=== PATIENT | female | born 1955 | race Caucasian/White ===

== ENCOUNTER 2016-07-19 12:38 | Inpatient (IN) | payer BC ==
[2016-07-19] VITALS (416 sets, daily range): BP systolic 110–129; BP diastolic 51–91; PULSE 84–111; TEMP 97.2–99.1; O2SAT 72–100
[~2016-07-19] VITALS: Ht 162.6 cm; Wt 60.7 kg
[2016-07-19] MEDS ORDERED: PRILOSEC 20MG20 MG PO (13:02)
[2016-07-19] MEDS ORDERED: B-12 100 MCG (13:03)
[2016-07-19 13:18] LABS: BASO % 0.5 % (0.0-2.0); EOS # 0.1 (0.0-0.7); EOS % 2.1 % (0-4.0); GRAN # 2.7 (1.4-6.5); GRAN % 71.6 % (42.2-75.2); LYMPH # 0.6 (1.2-3.4); LYMPH % 16.3 % (20.0-51.0); MEAN CELL VOLUME 94 fl (80.0-100.0); MEAN CORPUSCULAR HGB CONC 30 g/dl (33.0-37.0); MEAN PLATELET VOLUME 9.7 fl (7.4-10.4); MONO # 0.4 (0.1-0.6); MONO % 9.2 % (1.7-9.3); PLATELET COUNT 415 K/mm3 (130-400); RED BLOOD COUNT 2.03 M/mm3 (4.10-5.30); REDCELL DISTRIBUTION WIDTH-CV 14.6 % (11.5-14.5); WHITE BLOOD COUNT 3.8 K/mm3 (4.8-10.8)
[2016-07-19 13:26] LABS: HEMATOCRIT 19.1 % (37.0-47.0); HEMOGLOBIN 5.8 g/dl (12.5-16.0); MEAN CORPUSCULAR HEMOGLOBIN 29 pg (27.0-31.0)
[2016-07-19 13:34] LABS: ADJUSTED CALCIUM 8.9 mg/dL (8.4-10.2); ALBUMIN 3.6 gm/dL (3.5-5.0); BILIRUBIN,TOTAL 0.5 mg/dL (0.0-1.0); CALCIUM 8.6 mg/dL (8.4-10.2); CREATININE, serum 0.47 mg/dL (0.52-1.25); POTASSIUM 3.6 mmol/L (3.4-5.0); TOTAL PROTEIN 5.6 gm/dL (6.4-8.2)
[2016-07-19 16:26] LABS: RETIC % 9.1 % (0.5-3.52)
[2016-07-19] MEDS ORDERED: FORTEO250 MCG/ML SQ (16:42)
[2016-07-19 17:08] LABS: THYROID STIMULATING HORMONE 1.9 uIU/mL (0.465-4.680)
[2016-07-19] MEDS ORDERED: B-121000 MCG PO (17:52)
[2016-07-19] MEDS ORDERED: VITAMIN D31000 IU PO (17:53)
[2016-07-19] MEDS ORDERED: NATURAL IRON65 MG PO (17:54)
[2016-07-19 23:24] LABS: BASO % 0.6 % (0.0-2.0); EOS # 0.1 (0.0-0.7); EOS % 2.1 % (0-4.0); GRAN # 3.6 (1.4-6.5); GRAN % 67.7 % (42.2-75.2); LYMPH % 19.6 % (20.0-51.0); MEAN CELL VOLUME 91 fl (80.0-100.0); MEAN CORPUSCULAR HGB CONC 32 g/dl (33.0-37.0); MEAN PLATELET VOLUME 9.9 fl (7.4-10.4); MONO # 0.5 (0.1-0.6); MONO % 9.8 % (1.7-9.3); PLATELET COUNT 341 K/mm3 (130-400); RED BLOOD COUNT 2.94 M/mm3 (4.10-5.30); REDCELL DISTRIBUTION WIDTH-CV 14.9 % (11.5-14.5); WHITE BLOOD COUNT 5.3 K/mm3 (4.8-10.8)
[2016-07-19 23:26] LABS: HEMATOCRIT 26.6 % (37.0-47.0); HEMOGLOBIN 8.4 g/dl (12.5-16.0); MEAN CORPUSCULAR HEMOGLOBIN 29 pg (27.0-31.0)
[2016-07-20] VITALS (506 sets, daily range): BP systolic 107–130; BP diastolic 57–97; PULSE 71–98; TEMP 97.4–99.2; O2SAT 61–100
[2016-07-20 00:04] LABS: TOTAL IRON BINDING CAPACITY 343 ug/dL (265-497)
[2016-07-20 00:30] LABS: FERRITIN 9 ng/mL (11-264)
[2016-07-20 06:23] LABS: BASO % 0.7 % (0.0-2.0); EOS # 0.1 (0.0-0.7); EOS % 3.1 % (0-4.0); GRAN % 65.4 % (42.2-75.2); LYMPH # 0.9 (1.2-3.4); LYMPH % 19.7 % (20.0-51.0); MEAN CELL VOLUME 90 fl (80.0-100.0); MEAN CORPUSCULAR HGB CONC 31 g/dl (33.0-37.0); MEAN PLATELET VOLUME 9.9 fl (7.4-10.4); MONO # 0.5 (0.1-0.6); MONO % 10.9 % (1.7-9.3); PLATELET COUNT 352 K/mm3 (130-400); RED BLOOD COUNT 3.08 M/mm3 (4.10-5.30); REDCELL DISTRIBUTION WIDTH-CV 14.9 % (11.5-14.5); WHITE BLOOD COUNT 4.5 K/mm3 (4.8-10.8)
[2016-07-20 06:25] LABS: HEMATOCRIT 27.7 % (37.0-47.0); HEMOGLOBIN 8.7 g/dl (12.5-16.0); MEAN CORPUSCULAR HEMOGLOBIN 28 pg (27.0-31.0)
[2016-07-20 06:30] LABS: CALCIUM 8.2 mg/dL (8.4-10.2); CREATININE, serum 0.47 mg/dL (0.52-1.25); POTASSIUM 3.2 mmol/L (3.4-5.0)
[2016-07-21 01:01] VITALS: BP 122/59; PULSE 93; TEMP 97.6
[2016-07-21 05:04] VITALS: BP 109/50; PULSE 88; TEMP 97.9
[2016-07-21 08:33] VITALS: BP 134/61; PULSE 93; TEMP 98.3
[2016-07-21 17:03] VITALS: BP 108/54; PULSE 92; TEMP 97.9
[2016-07-22 02:21] LABS: ANA SCREEN with REFLEX Negative (Negative)
[2016-07-28 13:20] LABS: HEMOGLOBIN A2 2.5 % (0.0-3.5); HEMOGLOBIN F <2.0 % (0.0-2.0)
== END 2016-07-21 17:44 | disposition home or self-care (01) | DRG 394 ==
LOC: COL.ER 12:38 → ICU 14:09 → MEDICAL 14:09 → IMCU 20:20 → MEDICAL 07-20 13:20
PROVIDERS: Emergency Medicine; Family Medicine; Internal Medicine Gastroenterology
PROC: 0DJD8ZZ Inspection of Lower Intestinal Tract, Via Natural or Artificial Opening Endoscopic (ICD-10-PCS; principal; 2016-07-21 11:30)
PROC: 0DJ08ZZ Inspection of Upper Intestinal Tract, Via Natural or Artificial Opening Endoscopic (ICD-10-PCS; 2016-07-21 11:30)
DX: K64.1 Second degree hemorrhoids (principal); D62 Acute posthemorrhagic anemia; D50.9 Iron deficiency anemia, unspecified; E87.6 Hypokalemia; K21.0 Gastro-esophageal reflux disease with esophagitis; K44.9 Diaphragmatic hernia without obstruction or gangrene
CPT/HCPCS: 99223-AI; 99232-AI; 99238; C9113; J2250; J2310; J3010; J7030; P9016

== ENCOUNTER 2016-07-31 09:29 | Outpatient (RCR) | payer BC ==
[~2016-07-31] VITALS: Ht 162.6 cm; Wt 63.6 kg
[2016-07-31] VITALS (10 sets, daily range): BP systolic 103–148; BP diastolic 44–82; PULSE 68–98; TEMP 97.2–98.7
[~2016-07-31 09:29] MED LIST: B-12 100 MCG; B-121000 MCG PO; FORTEO250 MCG/ML SQ; NATURAL IRON65 MG PO; PRILOSEC 20MG20 MG PO; VITAMIN D31000 IU PO
== END 2016-10-29 | disposition home or self-care (01) ==
LOC: EUO
DX: D50.9 Iron deficiency anemia, unspecified (principal); M81.0 Age-related osteoporosis without current pathological fracture; E55.9 Vitamin D deficiency, unspecified; K21.9 Gastro-esophageal reflux disease without esophagitis; Z80.1 Family history of malignant neoplasm of trachea, bronchus and lung; Z80.0 Family history of malignant neoplasm of digestive organs; Z83.2 Family history of diseases of the blood and blood-forming organs and certain disorders involving the immune mechanism
CPT/HCPCS: J7050; P9016

== ENCOUNTER → 2016-11-20 | Outpatient (CLI) | payer BC | LOC: MC.RAD 09:28 | DX: Z12.31 Encounter for screening mammogram for malignant neoplasm of breast (principal) ==

== ENCOUNTER 2017-11-15 17:59 | Observation (INO) | payer BC ==
[~2017-11-15] VITALS: Ht 162.6 cm; Wt 61.0 kg
[~2017-11-15 17:59] MED LIST changes: +FOLIC ACID 40400 MCG PO; +NATURAL IRON65 MG
[2017-11-15 18:17] LABS: BASO % 0.5 % (0.0-2.0); EOS # 0.2 (0.0-0.7); EOS % 2.9 % (0-4.0); GRAN # 4.3 (1.4-6.5); GRAN % 65.4 % (42.2-75.2); HEMATOCRIT 40.6 % (37.0-47.0); HEMOGLOBIN 13.1 g/dl (12.5-16.0); LYMPH # 1.4 (1.2-3.4); LYMPH % 21.3 % (20.0-51.0); MEAN CELL VOLUME 99 fl (80.0-100.0); MEAN CORPUSCULAR HEMOGLOBIN 32 pg (27.0-31.0); MEAN CORPUSCULAR HGB CONC 32 g/dl (33.0-37.0); MONO # 0.6 (0.1-0.6); MONO % 9.6 % (1.7-9.3); PLATELET COUNT 334 K/mm3 (130-400); RED BLOOD COUNT 4.12 M/mm3 (4.10-5.30); REDCELL DISTRIBUTION WIDTH-CV 12.5 % (11.5-14.5)
[2017-11-15] MEDS ORDERED: TAMBOCOR50 MG PO (18:30)
[2017-11-15 18:31] LABS: BILIRUBIN,TOTAL 0.2 mg/dL (0.0-1.0); CREATININE, serum 0.57 mg/dL (0.52-1.25); POTASSIUM 3.7 mmol/L (3.4-5.0); TOTAL PROTEIN 6.6 gm/dL (6.4-8.2)
[2017-11-15 18:34] LABS: INR 0.9 (0.8-3.0); PROTHROMBIN TIME 10.7 SECONDS (9.7-12.8)
[2017-11-15 18:37] LABS: PARTIAL THROMBOPLASTIN TIME 30.1 SECONDS (26.0-37.0)
[2017-11-15 23:08] VITALS: BP 158/61; PULSE 84; TEMP 97.8
[2017-11-16 04:00] VITALS: BP 119/49; PULSE 88; TEMP 97.4
[2017-11-16 06:31] LABS: BASO % 0.6 % (0.0-2.0); EOS # 0.1 (0.0-0.7); EOS % 2.5 % (0-4.0); GRAN # 3.4 (1.4-6.5); GRAN % 64.6 % (42.2-75.2); LYMPH # 1.2 (1.2-3.4); LYMPH % 22.1 % (20.0-51.0); MEAN CELL VOLUME 100 fl (80.0-100.0); MEAN CORPUSCULAR HEMOGLOBIN 33 pg (27.0-31.0); MEAN CORPUSCULAR HGB CONC 33 g/dl (33.0-37.0); MEAN PLATELET VOLUME 10.5 fl (7.4-10.4); MONO # 0.5 (0.1-0.6); PLATELET COUNT 321 K/mm3 (130-400); RED BLOOD COUNT 3.69 M/mm3 (4.10-5.30); REDCELL DISTRIBUTION WIDTH-CV 12.6 % (11.5-14.5)
[2017-11-16 06:32] LABS: HEMATOCRIT 36.9 % (37.0-47.0)
[2017-11-16 06:40] LABS: CALCIUM 8.2 mg/dL (8.4-10.2); CREATININE, serum 0.53 mg/dL (0.52-1.25); POTASSIUM 3.9 mmol/L (3.4-5.0)
[2017-11-16 07:14] LABS: COLLECTION METHOD CLEAN CATCH
[2017-11-16 07:21] LABS: MUCOUS Present /lpf; PH 6 (5-8); SQUAMOUS EPITHELIAL None Seen /hpf; URINE APPEARANCE Clear; URINE BACTERIA None Seen /hpf; URINE BILIRUBIN Negative (NEGATIVE); URINE BLOOD 1+ (NEGATIVE); URINE COLOR Yellow; URINE GLUCOSE 1+ (NEGATIVE); URINE KETONE Negative (NEGATIVE); URINE LEUKOCYTE ESTERASE Negative (NEGATIVE); URINE NITRATE Negative (NEGATIVE); URINE PROTEIN(semi-quant) Negative (NEGATIVE); URINE UROBILINOGEN Negative (NEGATIVE)
[2017-11-16 07:27] VITALS: BP 150/66; PULSE 83; TEMP 98.6
[2017-11-16] MEDS ORDERED: ANTIVERT 12.512.5 MG PO (09:04)
== END 2017-11-16 10:13 | disposition home or self-care (01) ==
LOC: COL.ER 17:59 → MEDICAL 19:32
PROVIDERS: Family Medicine; Nurse Practitioner
DX: R42 Dizziness and giddiness (principal); I49.9 Cardiac arrhythmia, unspecified; D64.9 Anemia, unspecified; Z77.22 Contact with and (suspected) exposure to environmental tobacco smoke (acute) (chronic)
CPT/HCPCS: G0378; J7030

== ENCOUNTER → 2017-12-10 | Outpatient (CLI) | payer BC ==
[~2017-12-10] MED LIST changes: +ANTIVERT 12.512.5 MG PO; +TAMBOCOR50 MG PO
== END ==
LOC: MC.RAD 10:00
DX: Z12.31 Encounter for screening mammogram for malignant neoplasm of breast (principal)

== ENCOUNTER 2018-06-30 10:59 | Outpatient (RCR) | payer BC ==
[~2018-06-30] VITALS: Ht 162.6 cm; Wt 63.6 kg
[2018-06-30] VITALS (10 sets, daily range): BP systolic 91–114; BP diastolic 37–69; PULSE 67–91; TEMP 98.1–99.2
== END 2018-06-30 16:21 | disposition home or self-care (01) ==
LOC: EUO 10:59
DX: D50.0 Iron deficiency anemia secondary to blood loss (chronic) (principal)
CPT/HCPCS: J7050; P9016

== ENCOUNTER 2018-11-05 14:35 | Outpatient (CLI) | payer BC ==
[~2018-11-05] VITALS: Ht 162.6 cm; Wt 65.4 kg
[2018-11-05 15:20] LABS: CREATININE, serum 0.48 (0.52-1.25)
[2018-11-05 16:04] VITALS: BP 115/50; PULSE 68; TEMP 98.7
== END 2018-11-05 16:25 | disposition home or self-care (01) ==
LOC: EUO 14:35
PROVIDERS: Family Medicine
DX: Z01.89 Encounter for other specified special examinations (principal); M81.0 Age-related osteoporosis without current pathological fracture
CPT/HCPCS: J3489

== ENCOUNTER → 2018-12-20 | Outpatient (CLI) | payer BC | LOC: MC.RAD 07:51 | DX: Z12.31 Encounter for screening mammogram for malignant neoplasm of breast (principal) ==

== ENCOUNTER → 2019-12-22 | Outpatient (CLI) | payer MEDICARE, BC | LOC: MC.RAD 09:41 | DX: Z12.31 Encounter for screening mammogram for malignant neoplasm of breast (principal); N63.10 Unspecified lump in the right breast, unspecified quadrant; N63.20 Unspecified lump in the left breast, unspecified quadrant ==

== ENCOUNTER → 2019-12-29 | Outpatient (CLI) | payer MEDICARE, BC | LOC: MC.RAD 08:20 | DX: N60.02 Solitary cyst of left breast (principal) ==

== ENCOUNTER 2020-06-08 07:37 | Outpatient (CLI) | payer MEDICARE, BC ==
[2020-06-08 08:41] VITALS: BP 142/82; PULSE 88; TEMP 97.6
[2020-06-08] MEDS ORDERED: ALTACE 5MG5 MG PO (09:20)
--- NOTE | 2020-06-08 09:51 | NUR ---
Pt remained in dept 30 mins following initial prolia injeciton. No complaints or issues following medicaiton. She is assisted out by wheelchair to sister's car.
== END 2020-06-08 09:50 | disposition home or self-care (01) ==
LOC: COL.RAD
DX: N20.1 Calculus of ureter (principal); K44.9 Diaphragmatic hernia without obstruction or gangrene; M81.0 Age-related osteoporosis without current pathological fracture; Z01.812 Encounter for preprocedural laboratory examination; Z79.899 Other long term (current) drug therapy
CPT/HCPCS: J0897; Q9967

== ENCOUNTER 2020-12-12 14:18 | Outpatient (CLI) | payer MEDICARE, BC ==
[~2020-12-12] VITALS: Ht 162.6 cm; Wt 54.0 kg
[~2020-12-12 14:18] MED LIST changes: +ALTACE 5MG5 MG PO
[2020-12-12 14:57] VITALS: BP 103/48; PULSE 84; TEMP 98.8; TEMP 99.3
== END 2020-12-12 18:14 | disposition home or self-care (01) ==
LOC: EUO 14:18
DX: M81.0 Age-related osteoporosis without current pathological fracture (principal)
CPT/HCPCS: J0897

== ENCOUNTER → 2020-12-24 | Outpatient (CLI) | payer MEDICARE, BC | LOC: MC.RAD 10:23 | DX: Z12.31 Encounter for screening mammogram for malignant neoplasm of breast (principal) ==

== ENCOUNTER 2021-06-17 14:31 | Outpatient (CLI) | payer MEDICARE, BC ==
[~2021-06-17] VITALS: Ht 162.6 cm; Wt 65.5 kg
[2021-06-17 15:02] VITALS: BP 120/52; PULSE 91; TEMP 98.8
== END 2021-06-17 15:59 | disposition home or self-care (01) ==
LOC: EUO 14:31
DX: M81.0 Age-related osteoporosis without current pathological fracture (principal)
CPT/HCPCS: J0897

== ENCOUNTER 2021-10-05 17:47 | Inpatient (IN) | payer MEDICARE, BC ==
[2021-10-05] VITALS (46 sets, daily range): BP systolic 85–117; BP diastolic 38–63; PULSE 112–121; TEMP 98.2–99.3; O2SAT 92–100
[~2021-10-05] VITALS: Ht 162.5 cm; Wt 70.3 kg
[2021-10-05 18:09] LABS: BASO % 0.1 % (0.0-2.0); GRAN # 14.3 K/mm3 (1.4-6.5); GRAN % 87.4 % (42.2-75.2); LYMPH # 0.8 K/mm3 (1.2-3.4); LYMPH % 4.6 % (20.0-51.0); MEAN CELL VOLUME 65 fl (80.0-100.0); MEAN CORPUSCULAR HGB CONC 24 g/dl (33.0-37.0); MEAN PLATELET VOLUME 10.6 fl (7.4-10.4); MONO # 1.1 K/mm3 (0.1-0.6); MONO % 6.9 % (1.7-9.3); PLATELET COUNT 750 K/mm3 (130-400); RED BLOOD COUNT 1.48 M/mm3 (4.10-5.30); REDCELL DISTRIBUTION WIDTH-CV 24.2 % (11.5-14.5)
[2021-10-05 18:20] LABS: HEMATOCRIT 9.6 % (37.0-47.0); HEMOGLOBIN 2.3 g/dl (12.5-16.0); MEAN CORPUSCULAR HEMOGLOBIN 16 pg (27-31)
[2021-10-05 18:24] LABS: INR 1.7 (0.8-3.0); PROTHROMBIN TIME 19.1 SECONDS (9.7-12.8)
[2021-10-05 18:30] LABS: ALBUMIN 3.2 gm/dL (3.4-4.8); BILIRUBIN,TOTAL 0.9 mg/dL (0.2-1.2); CALCIUM 9.1 mg/dL (8.4-10.2); CREATININE, serum 1.43 mg/dL (0.57-1.11); TOTAL PROTEIN 5.5 gm/dL (6.2-8.1)
[2021-10-05 18:30] LABS: MEAN CELL VOLUME 65 fl (80.0-100.0); MEAN CORPUSCULAR HGB CONC 24 g/dl (33.0-37.0); MEAN PLATELET VOLUME 10.4 fl (7.4-10.4); PLATELET COUNT 664 K/mm3 (130-400); RED BLOOD COUNT 1.32 M/mm3 (4.10-5.30); REDCELL DISTRIBUTION WIDTH-CV 24.1 % (11.5-14.5)
[2021-10-05 18:40] LABS: TROPONIN-I 0.096 ng/mL (0.00-0.033)
[2021-10-05 18:51] LABS: MEAN CORPUSCULAR HEMOGLOBIN 16 pg (27-31)
[2021-10-05 19:11] LABS: HEMATOCRIT 8.6 % (37.0-47.0); HEMOGLOBIN 2.1 g/dl (12.5-16.0)
[2021-10-05 19:19] LABS: COLLECTION METHOD IN
[2021-10-05 19:30] LABS: MUCOUS Present (NOT PRESENT); PH 5 (5-8); SQUAMOUS EPITHELIAL 0-2 /hpf (0-10); URINE APPEARANCE Hazy (CLEAR/HAZY); URINE BACTERIA None Seen /hpf (NONE SEEN); URINE BILIRUBIN Negative (NEGATIVE); URINE BLOOD Negative (NEGATIVE); URINE COLOR Yellow (YELLOW); URINE GLUCOSE Negative (NEGATIVE); URINE KETONE Negative (NEGATIVE); URINE LEUKOCYTE ESTERASE Negative (NEGATIVE); URINE NITRATE Negative (NEGATIVE); URINE PROTEIN(semi-quant) Negative (NEGATIVE); URINE UROBILINOGEN >=4.0 (NEGATIVE)
--- NOTE | 2021-10-05 23:42 | NUR ---
ATTEMPTED TO DO ADMISSION INTAKE/SUICIDE SCREENING. PT PRESENTS W AMS AND LETHERGY SO UNABLE TO ANSWER QUESTIONS. THE ONLY RESPONSE PT ANSWERED WAS WHEN ASKED HER NAME. WILL ATTEMPT AGAIN LATER IF PT BECOMES MORE ALERT/AWAKE
[2021-10-06] VITALS (855 sets, daily range): BP systolic 96–138; BP diastolic 37–81; PULSE 83–117; TEMP 98.4–99.8; O2SAT 61–100
[2021-10-06] LABS: ARTERIAL BLD GAS O2 SATURATION 98.5 % (92-100); ARTERIAL BLD GAS TCO2 CT 19.7; ARTERIAL BLOOD GAS BASE EXCESS -4.7 (-2-2); ARTERIAL BLOOD GAS HCO3 18.8 meq/L (22-26); ARTERIAL BLOOD GAS PCO2 27.5 mmHg (35-45); ARTERIAL BLOOD GAS pH 7.45 (7.35-7.45)
[2021-10-06 00:02] LABS: ARTERIAL BLOOD GAS PO2 137.9 mmHg (80-100)
[2021-10-06 00:41] LABS: TRICYCLIC ANTIDEPRESS URINE NEGATIVE
[2021-10-06 03:32] LABS: HEMATOCRIT 26.2 % (37.0-47.0); HEMOGLOBIN 8.3 g/dl (12.5-16.0)
[2021-10-06 03:41] LABS: CALCIUM 8.3 mg/dL (8.4-10.2); CREATININE, serum 0.84 mg/dL (0.57-1.11); POTASSIUM 3.8 mmol/L (3.5-4.5)
[2021-10-06 05:33] LABS: MEAN CORPUSCULAR HGB CONC 32 g/dl (33.0-37.0); MEAN PLATELET VOLUME 10.3 fl (7.4-10.4); RED BLOOD COUNT 3.07 M/mm3 (4.10-5.30); REDCELL DISTRIBUTION WIDTH-CV 21.2 % (11.5-14.5)
[2021-10-06 05:50] LABS: HEMATOCRIT 23.7 % (37.0-47.0); HEMOGLOBIN 7.6 g/dl (12.5-16.0); MEAN CELL VOLUME 77 fl (80.0-100.0); MEAN CORPUSCULAR HEMOGLOBIN 25 pg (27-31); PLATELET COUNT 447 K/mm3 (130-400)
[2021-10-06 06:31] LABS: BAND 2 % (0-10); LYMPHOCYTE 3 % (20.0-51.0); NEUTROPHILS 95 % (42.0-75.2); NUCLEATED RED BLOOD CELL 2 (0-6); PLATELET ESTIMATE INCREASED (NORMAL)
[2021-10-06 06:32] LABS: ANISOCYTOSIS 1+; HYPOCHROMIA 2+; POLYCHROMASIA 1+
--- NOTE | 2021-10-06 07:00 | NUR ---
BEDSIDE REPORT RECEIVED FROM JIMMIE GUILLEN. PT ADMITTED OVERNIGHT FOR ANEMIA, GI BLEED, AND AMS. PT PARTIALLY ORIENTED THIS AM. KNOWS WHERE SHE IS AND WHO SHE IS, BUT DOES NOT KNOW WHY SHE IS IN THE HOSPITAL OR HOW SHE GOT HERE. NS INFUSING AT 125. 20G PIV TO LEFT AC. 18 PIV TO RIGHT HAND. FC TO DEPENDENT DRAINAGE. WEARS 5L OXYMASK WITH SPO2 AT 100%. NO OBVIOUS SIGNS OF DISCOMFORT. LIES SUPINE WITH HOB ELEVATED.
[2021-10-06 08:42] LABS: HEMATOCRIT 25.9 % (37.0-47.0); HEMOGLOBIN 8.4 g/dl (12.5-16.0)
--- NOTE | 2021-10-06 09:33 | NUR ---
Cloud Developer attempted to meet with patient for intake assessment/discharge planning: Patient appears to be resting in bed, eyes closed. Documentation indicates patient is oriented only to self and brought to ER by family after visiting [place], 3 days after onset of abnormal behaviors. Cloud Developer attempted to contact patient sister/Next-of-Kin Damaris Rosales at [phone], and left generalized VM requesting a call back. No HIPPA information disclosed at this time. EMR indicates patient primary care physician is Dr. Greg Haider and preferred pharmacy is [facility]. Patient has healthcare coverage. No Advanced Directives/DPOA-HC noted in patient EMR. Cloud Developer awaiting contact from patient sister/Next-of-Kin for care planning discussion. Social Work to continue to follow. *Discharge plan: awaiting family contact and medical recommendations*
[2021-10-06 12:34] LABS: HEMATOCRIT 23.9 % (37.0-47.0); HEMOGLOBIN 7.8 g/dl (12.5-16.0)
--- NOTE | 2021-10-06 16:30 | NUR ---
Ssis Ssrs Developer received telephone contact from patient sister/Next-of-Kin Damaris Rosales ([phone]). Sister provides the following information: Patient lives alone in an apartment in the [facility] on the ground floor. She has been, to this point, independent in her ADLs and IADLS, though her preference is to eat out. Sister states she had been "insistent" that patient try utilizing a walker since she has unbalanced upper body, due to history of spinal curvature and surgery at age 11. Patient finally consented to use the walker prior to the trip to [place] this past week for a family reunion, and has used it since. Per sister, upon arrival to [place], patient began to be "mute" and did not eat, refused to respond to questions. They knew something was wrong and left as soon as possible, considering a stop in [place] for medical care but wanted to get her to the hospital closer to home. They dropped her off at the ER before they drove home. Sister informs patient has healthcare coverage, but not sure if she has an Advanced Directive and/or DPOA-HC "she hasn't wanted to talk to us about that stuff," however sister notes recently patient has expressed interest in touring [facility] [place] where sister and her spouse are currently prepared to move into. Sister encouraged patient to view numerous placements, as she is aware of many from friend experiences. She states belief that patient is receptive to recommendations for skilled care and/or in-home healthcare as medically recommended. She states patient has lived in [place] the past 3 years after having lived for the majority of her life in [place]; she has no spouse or children and worked for many years at the [employer]. She decided to move to be closer to her sibling when their parents . Sister is available for social work and/or medical contact and is given the telephone number for the ICU at her request. Sister reports no other questions/concerns at this time. *Discharge plan pending patient recovery/process and medical recommendations*
[2021-10-06 16:48] LABS: HEMATOCRIT 24.3 % (37.0-47.0); HEMOGLOBIN 7.7 g/dl (12.5-16.0)
--- NOTE | 2021-10-06 20:17 | NUR ---
Patient resting quietly in bed watching TV. Patient is alert and partially oriented. She is aware of self, current location, and current president. All vitals within normal limits. She tolerates ice water well. [place] box provided upon request.
[2021-10-06 21:26] LABS: HEMATOCRIT 24.5 % (37.0-47.0); HEMOGLOBIN 7.9 g/dl (12.5-16.0)
[2021-10-07] VITALS (332 sets, daily range): BP systolic 105–127; BP diastolic 42–68; PULSE 96–106; TEMP 97.8–98.4; O2SAT 56–100
[2021-10-07 05:23] LABS: MEAN CELL VOLUME 77 fl (80.0-100.0); MEAN CORPUSCULAR HGB CONC 31 g/dl (33.0-37.0); MEAN PLATELET VOLUME 10.4 fl (7.4-10.4); RED BLOOD COUNT 2.91 M/mm3 (4.10-5.30); REDCELL DISTRIBUTION WIDTH-CV 21.7 % (11.5-14.5)
[2021-10-07 05:32] LABS: CALCIUM 7.4 mg/dL (8.4-10.2); CREATININE, serum 0.63 mg/dL (0.57-1.11); POTASSIUM 3.4 mmol/L (3.5-4.5)
[2021-10-07 05:42] LABS: HEMATOCRIT 22.4 % (37.0-47.0); MEAN CORPUSCULAR HEMOGLOBIN 24 pg (27-31); PLATELET COUNT 281 K/mm3 (130-400)
[2021-10-07 05:48] LABS: TROPONIN-I 0.104 ng/mL (0.00-0.033)
[2021-10-07 05:56] LABS: LYMPHOCYTE 2 % (20.0-51.0); NEUTROPHILS 93 % (42.0-75.2); NUCLEATED RED BLOOD CELL 4 (0-6)
[2021-10-07 05:57] LABS: ANISOCYTOSIS 1+; HYPOCHROMIA 2+; PLATELET ESTIMATE NORMAL (NORMAL)
--- NOTE | 2021-10-07 08:15 | NUR ---
Resting in bed; Alert and parially oriented. Denies any pain or shortness of breath. Appears comfortable in bed. Patient is able to follow basic commands and answer basic yes or no questions appropriatly. However she was unable to tell this nurse that she was in the hospital but knows she is in [place]. Bed alarm set and call light left within reach.
[2021-10-07 12:13] LABS: HEMATOCRIT 23.9 % (37.0-47.0); HEMOGLOBIN 7.5 g/dl (12.5-16.0)
--- NOTE | 2021-10-07 16:25 | NUR ---
Assisted up to medical floor via wheelchair. Alert and oriented per usual and in no distress upon transfer. Met receiving RN at bedside. Call light left within reach.
[2021-10-07 18:29] LABS: HEMATOCRIT 24.1 % (37.0-47.0); HEMOGLOBIN 7.5 g/dl (12.5-16.0)
[2021-10-08] VITALS (13 sets, daily range): BP systolic 104–129; BP diastolic 41–67; PULSE 57–95; TEMP 97.6–99
--- NOTE | 2021-10-08 01:39 | NUR ---
PATIENT IN BED, VERY DROWSY BUT ALERT. OCHOA TO DD WITH CLEAR YELLOW URINE OUT. REMAINS NPO FOR POSSIBLE SCOPE IN AM. HS MEDS PER EMAR. DENIES PAIN.
[2021-10-08 06:30] LABS: CALCIUM 7.5 mg/dL (8.4-10.2); CREATININE, serum 0.61 mg/dL (0.57-1.11); POTASSIUM 3.9 mmol/L (3.5-4.5)
[2021-10-08 06:39] LABS: BASO % 0.2 % (0.0-2.0); EOS # 0.1 K/mm3 (0.0-0.7); EOS % 0.9 % (0.0-4.0); GRAN # 7.9 K/mm3 (1.4-6.5); GRAN % 80.1 % (42.2-75.2); LYMPH # 0.7 K/mm3 (1.2-3.4); LYMPH % 6.9 % (20.0-51.0); MEAN CELL VOLUME 79 fl (80.0-100.0); MEAN CORPUSCULAR HGB CONC 31 g/dl (33.0-37.0); MEAN PLATELET VOLUME 10.7 fl (7.4-10.4); MONO # 1.1 K/mm3 (0.1-0.6); PLATELET COUNT 191 K/mm3 (130-400); REDCELL DISTRIBUTION WIDTH-CV 23.7 % (11.5-14.5)
[2021-10-08 07:15] LABS: HEMATOCRIT 21.4 % (37.0-47.0); HEMOGLOBIN 6.6 g/dl (12.5-16.0); MEAN CORPUSCULAR HEMOGLOBIN 24 pg (27-31)
--- NOTE | 2021-10-08 09:49 | NUR ---
PATIENT ASSESSMENT DONE ORDER. PATIENT IS ALERT X 3 TODAY BUT TIRED(PER PATIENT)LUNG SOUND CLEAR IN ALL LOBES. BOWEL SOUND HYPERACTIVE IN ALL QUADS. PATIENT AT THIS TIME NPO FOR A POSSIBLE SCOPE TODAY. MEDICATION WAS GIVEN WITH SMALL AMOUNT OF WATER. LOWER EXTREMITIES WITH EDEMA NOTED. HEART RATE FAST BUT STILL IN NORMAL RANGE. OCHOA CATHETER IN TACT BUT FLOWING DARK YELLOW/SAJI COLOR WITH SEDIMENT NOTED.PATIENT LAB ([facility]) WAS AT 2.8 WHEN ADMITTED BUT NOW ITS 7.5.DR BRENNAN IS AWARE.IV SITE ON LEFT AC WAS NOT FLOWING CORRECTLY THIS MORNING BUT WITH REPOSTION SITE AND CHANGING TAPES, GOT TO FLOW CORRECTLY AND MEDICATION WAS GIVEN WITH NO ISSUE. CALL LIGHT IN REACH. INSTRUCTED TO CALL IF THERE IS ANY CONCERN OR QUESTION
--- NOTE | 2021-10-08 10:40 | NUR ---
VASCULAR NURSE NOTIFIED BEDSIDE NURSE ABOUT LLE DVT, SEE REPORT. HOSPITALIST NOTIFED, SEE ORDERS FOR IVC FILTER. NOTIFIED SHORT PIECE HANDLER, AWAITING RETURN CALL ABOUT PLACEMENT. PATIENT STILL NPO.
--- NOTE | 2021-10-08 15:15 | NUR ---
PATIENT GOING DOWN TO GASOLINE ENGINE ASSEMBLER FOR IVC FILTER PLACEMENT TODAY. CONSENT ON CHART. PATIENT HAS BEEN NPO.
--- NOTE | 2021-10-08 16:54 | NUR ---
LAB CALL AND THAT BLOOD TRANFUSION WAS READY.UPON ASSESSMENT IV ON LEFT AC WAS LEAKING,D/C COVER WITH GAUZE AND COBAN. RN RESTARTED 20G IV INTO RIGHT HAND. STARTED BLOOD TRANFUSION PER ORDER. VSS. PATIENT TOLERATED WELL SO FAR.
[2021-10-08 22:03] LABS: HEMATOCRIT 26.9 % (37.0-47.0); HEMOGLOBIN 8.5 g/dl (12.5-16.0)
--- NOTE | 2021-10-09 02:30 | NUR ---
PATIENT IN BED. ALERT BUT DROWSY. HS MEDS PER EMAR. BLOOD INFUSION COMPLETED SHORTLY AFTER SHIFT CHANGE. 2 HR POST H&H WAS 8.5. IVF INFUSING NOW. OCHOA TO DD WITH CLEAR YELLOW URINE. R GROIN SITE CDI WITH GAUZE AND TEGADERM. DENIES PAIN. DENIES ADDITIONAL NEEDS.
[2021-10-09 03:27] VITALS: BP 124/54; PULSE 68; TEMP 97.6
[2021-10-09 07:55] VITALS: BP 131/63; PULSE 93; TEMP 98.2
--- NOTE | 2021-10-09 08:00 | NUR ---
PT A&O SITTING IN BED EATING BREAKFAST AND TOLERATING CLEAR LIQUIDS. MEDS HAVE BEEN GIVEN AND ASSESSMENT IS COMPLETED. OCHOA IN PLACE WITH CLEAR URINE. PAIN IS DENIED. BOWEL PREP WILL BEGIN LATER THIS EVENING. NO OTHER NEEDS AT THIS TIME. CALL LIGHT WITHIN REACH.
[2021-10-09 08:42] LABS: BASO % 0.1 % (0.0-2.0); EOS # 0.2 K/mm3 (0.0-0.7); EOS % 2.1 % (0.0-4.0); GRAN # 6.6 K/mm3 (1.4-6.5); GRAN % 78.7 % (42.2-75.2); LYMPH # 0.4 K/mm3 (1.2-3.4); LYMPH % 4.6 % (20.0-51.0); MEAN CELL VOLUME 82 fl (80.0-100.0); MEAN CORPUSCULAR HGB CONC 31 g/dl (33.0-37.0); MEAN PLATELET VOLUME 11.2 fl (7.4-10.4); MONO # 1.1 K/mm3 (0.1-0.6); MONO % 13.4 % (1.7-9.3); PLATELET COUNT 156 K/mm3 (130-400); REDCELL DISTRIBUTION WIDTH-CV 22.6 % (11.5-14.5)
[2021-10-09 08:44] LABS: HEMATOCRIT 28.8 % (37.0-47.0); INR 1.3 (0.8-3.0); MEAN CORPUSCULAR HEMOGLOBIN 26 pg (27-31); PROTHROMBIN TIME 15.1 SECONDS (9.7-12.8)
[2021-10-09 08:53] LABS: ALBUMIN 2.9 gm/dL (3.4-4.8); BILIRUBIN,TOTAL 1.9 mg/dL (0.2-1.2); CALCIUM 7.5 mg/dL (8.4-10.2); CREATININE, serum 0.53 mg/dL (0.57-1.11); POTASSIUM 3.9 mmol/L (3.5-4.5); TOTAL PROTEIN 4.9 gm/dL (6.2-8.1)
--- NOTE | 2021-10-09 11:25 | NUR ---
Admissions Clinician met with patient to review discharge plan. Patient states she plans to return home with support from her sister, Damaris. SW addressed with patient that she is 2 assist at this time. Patient states she feels she can manage with help from Damaris. SW followed up again with patient with her sister, Damaris at bedside. Damaris advised she plans to take patient home to her house for at least a few days as patient regains her strength. Patient is open to Home Health services at time of discharge.
[2021-10-09 11:43] LABS: BILIRUBIN,DIRECT 0.9 mg/dL (0.0-0.5)
[2021-10-09 12:39] VITALS: BP 127/63; PULSE 81; TEMP 97.6
[2021-10-09 16:50] VITALS: BP 134/65; PULSE 84; TEMP 98.3
[2021-10-09 20:04] VITALS: BP 118/54; PULSE 88; TEMP 100.6
--- NOTE | 2021-10-09 20:21 | NUR ---
TEMP 100.6, NOTIFIED PAT DELACRUZ. AWAITING NEW ORDERS.
[2021-10-09 23:37] VITALS: BP 102/46; PULSE 81; TEMP 99.5
[2021-10-10] VITALS (10 sets, daily range): BP systolic 104–132; BP diastolic 46–68; PULSE 81–100; TEMP 98–99.1
--- NOTE | 2021-10-10 02:27 | NUR ---
PATIENT IN BED AT SHIFT CHANGE. HS MEDS PER EMAR. DENIES PAIN. OCHOA TO DD WITH CLEAR YELLOW URINE. R GROIN IVC SITE IS CDI WITH GAUZE AND TEGADERM. BOWEL PREP IS ALMOST COMPLETE AND PATIENT HAS HAD FIRST LOOSE BM. STOOLS ARE STILL BROWN AND THIS POINT.
--- NOTE | 2021-10-10 07:52 | NUR ---
CONTACTED LILLIE DELACRUZ FOR LAB ORDERS.
[2021-10-10 08:44] LABS: BASO % 0.2 % (0.0-2.0); EOS # 0.2 K/mm3 (0.0-0.7); GRAN # 9.1 K/mm3 (1.4-6.5); GRAN % 80.8 % (42.2-75.2); LYMPH # 0.4 K/mm3 (1.2-3.4); LYMPH % 3.4 % (20.0-51.0); MEAN CELL VOLUME 85 fl (80.0-100.0); MEAN CORPUSCULAR HGB CONC 30 g/dl (33.0-37.0); MEAN PLATELET VOLUME 10.6 fl (7.4-10.4); MONO # 1.5 K/mm3 (0.1-0.6); MONO % 12.9 % (1.7-9.3); PLATELET COUNT 142 K/mm3 (130-400); RED BLOOD COUNT 3.68 M/mm3 (4.10-5.30); REDCELL DISTRIBUTION WIDTH-CV 23.7 % (11.5-14.5)
[2021-10-10 08:48] LABS: HEMATOCRIT 31.3 % (37.0-47.0); HEMOGLOBIN 9.3 g/dl (12.5-16.0); MEAN CORPUSCULAR HEMOGLOBIN 25 pg (27-31)
[2021-10-10 08:50] LABS: CALCIUM 7.8 mg/dL (8.4-10.2); CREATININE, serum 0.55 mg/dL (0.57-1.11)
--- NOTE | 2021-10-10 11:49 | NUR ---
ASSESSMENT DONE ORDER. PATIENT CONTINUE TO BE OFF AND ON SLEEPING. ALERTX 2 WITH PERIOD OF CONFUSION. NO SEDATED MEDICATION GIVEN. PATIENT CONTINUE TO BE NPO FOR ENDOCOPY PROCEDURE TODAY. OCHOA CATHETER INTACT WITH YELLOW URINE. NO SEDEMENT NOTED. PATIENT TOLERATED PO MEDICATION TODAY. IV SITE ON RIGHT HAND WITH NO ISSUE NOTED. LEFT LEG CONTINUE TO BE SWOLLEN +2 PITTING NOTED. NO PAIN AT THIS TIME PER PATIENT. CALL LIGHT IN REACH. INSTRUCTED PATIENT TO CALL IF THERE IS ANY CONCERN OR QUESTION. SIDE NOTE. CLEAN EYES DUE TO DRY CRUST NOTED. PATIENT WAS ABLE TO OPEN RIGHT EYE AFTER CLEANING AREA.
--- NOTE | 2021-10-10 14:21 | NUR ---
TAP WATER ENEMA COMPLETE NO SOLIDS RETURNED. ALL LIQUID. PT TO PROCEEDURE AT THIS TIME. NEW IV START BY PEACE SAMUEL TO LEFT WRIST.
--- NOTE | 2021-10-10 14:34 | NUR ---
PT TO SURGERY PER BED AT THIS TIME. DR. ALEMAN IN TO SEE PT.
--- NOTE | 2021-10-10 15:59 | NUR ---
PT TO ROOM 327 PER BED WITH REPORT FROM SHELBI SAMUEL ENDO. PT HAD COLONSCOPY/EGD. VSS ASSESSMENTS COMPLETE. SEE REPORT FOR RESULTS. PT TOLERATING WELL.
--- NOTE | 2021-10-10 16:47 | NUR ---
AGREE WITH ASSESSMENTS CHARTED.
--- NOTE | 2021-10-10 18:30 | NUR ---
UPON BEDSIDE SHIFT REPORT WITH JIMMIE BRYSON. THE PATIENT'S IV THAT WAS PLACED BY AIVS HAS BEEN PULLED OUT, CATHETER IS HANGING OUT AND IS KINKED. THE PATIENT IS NOT COMPLAINING OF PAIN. HOWEVER, THE PATIENT IS STILL ON GRAVITY TUBING, SO RN UNAWARE OF OCCLUSION. WILL ATTEMPT X1 AND THEN CONTACT PROVIDER GIVEN THE DIFFICULTY SHE HAS BEEN HAVING WITH IVS. NO OTHER CONCERNS AT THIS TIME.
--- NOTE | 2021-10-11 02:02 | NUR ---
THE PATIENT'S IV HAS BEEN VERY TOUCHY. DURING THIS HOUR ROUNDING, THE IV HAS COME OUT. THERE IS BLOOD ON THE PATIENT'S PILLOW, AND GOWN, UPON FURTHER ASSESSMENT, THE IV CATHETER IS FULLY OUT. THIS IS THE IV THAT WAS PLACED BY [facility] TODAY. CALLED JAYME STEVENS WHO STATES THAT WE CAN DISCONTINUE THE FLUIDS AND THE PATIENT CAN GO WITHOUT THE IV AT THIS TIME.
[2021-10-11 04:07] VITALS: BP 110/46; BP 152/65; PULSE 65; PULSE 85; TEMP 98.1
[2021-10-11 06:34] LABS: BASO % 0.3 % (0.0-2.0); EOS # 0.3 K/mm3 (0.0-0.7); EOS % 2.9 % (0.0-4.0); GRAN # 9.2 K/mm3 (1.4-6.5); GRAN % 80.1 % (42.2-75.2); LYMPH # 0.5 K/mm3 (1.2-3.4); LYMPH % 4.5 % (20.0-51.0); MEAN CELL VOLUME 87 fl (80.0-100.0); MEAN CORPUSCULAR HGB CONC 30 g/dl (33.0-37.0); MEAN PLATELET VOLUME 11.1 fl (7.4-10.4); MONO # 1.3 K/mm3 (0.1-0.6); MONO % 11.7 % (1.7-9.3); PLATELET COUNT 138 K/mm3 (130-400); RED BLOOD COUNT 3.23 M/mm3 (4.10-5.30); REDCELL DISTRIBUTION WIDTH-CV 23.7 % (11.5-14.5)
[2021-10-11 06:37] LABS: HEMOGLOBIN 8.4 g/dl (12.5-16.0); MEAN CORPUSCULAR HEMOGLOBIN 26 pg (27-31)
[2021-10-11 06:50] LABS: CALCIUM 7.6 mg/dL (8.4-10.2); CREATININE, serum 0.52 mg/dL (0.57-1.11); POTASSIUM 3.8 mmol/L (3.5-4.5)
[2021-10-11 07:59] VITALS: BP 118/54; PULSE 89; TEMP 98.8
--- NOTE | 2021-10-11 08:00 | NUR ---
PT A&OX3 DROWSY BUT AWOKEN ON AROUSEL WHILE RESTING IN BED. ASSESSMENT COMPLETED AND AM MEDS GIVEN. PT DENIES PAIN. BOWEL SOUNDS ARE HYPERACTIVE IN ALL QUADRANTS. PALE IN COLOR BUT HAS IMPROVED. HGB STABLE AT 8.4. LLE STILL SLIGHTLY SWOLLEN. IVC FILTER IN PLACE FOR KNOWN DVT. NO ANTICOAGULANTS GIVEN DUE TO GI BLEED. VS ARE STABLE AND ON TELE. OCHOA IS OUTPUTTING URINE. PT BEING EVALUATED FOR DC PLANNING.
--- NOTE | 2021-10-11 11:45 | NUR ---
THERAPY REPORTED TO NURSING THAT PATIENT WOULD NOT PARTICIPATE DURING THERAPY AND WOULD JUST SLEEP. PATIENT WOULDN'T ANSWER THERAPIST WHEN SHE WAS TALKING TO HER. THERAPY WAS UNABLE TO WORK WITH PATIENT AT THIS TIME AND REPORTED THIS TO THE NURSE. NURSING ENTERED ROOM AND PATIENT OPENED EYES AND TALKED TO NURSE. PATIENT IS TIRED BUT THIS SEEMS BEHAVIORAL AND INTENTIONAL.
[2021-10-11 12:45] VITALS: BP 101/31; PULSE 87; TEMP 98.7
[2021-10-11 16:16] VITALS: BP 102/44; PULSE 86; TEMP 99
--- NOTE | 2021-10-11 16:44 | NUR ---
Informatica Architect received a call from Hospitalist on 10/10/21 advising that patient's sister would not be agreeable to have rehab referrals sent. ISMAEL faxed referrals to [facility] and [facility]. [facility] Screen was also placed. ISMAEL met with patient and patient's sister to discuss discharge planning. Patient still felt like she could go home with her sister, but after discussion with SW and sister, is agreeable to rehab. [facility] would [facility] the first preference. ISMAEL also discussed DPOA-HC with patient who verbalized understanding and willingness to complete form while here in hospital. Patient would like to designate her sister, Damaris and niece, Carola. ISMAEL and ISMAEL Rowell provided witness signatures. ISMAEL faxed clinical updates. [facility] advised they can accept, however cannot take until Thursday. [facility] declined referral. [facility] are reviewing updates at this time.
[2021-10-11 18:59] LABS: HEMATOCRIT 32.1 % (37.0-47.0); HEMOGLOBIN 9.5 g/dl (12.5-16.0)
[2021-10-11 19:34] VITALS: BP 112/44; PULSE 90; TEMP 98.6
--- NOTE | 2021-10-11 20:12 | NUR ---
ASSESSMENT COMPLETE. PT LYING IN BED. A&O. NO COMPLAINTS OF PAIN. OCHOA SECURED AND DEPENDENT TO DRAINAGE. CALL LIGHT IN REACH. NO FURHTER NEEDS AT THIS TIME.
[2021-10-11 23:22] VITALS: BP 114/45; PULSE 85; TEMP 98.4
[2021-10-12 04:07] VITALS: BP 113/50; PULSE 84; TEMP 98.2
[2021-10-12 06:18] LABS: BASO % 0.2 % (0.0-2.0); EOS # 0.3 K/mm3 (0.0-0.7); EOS % 2.8 % (0.0-4.0); GRAN % 80.7 % (42.2-75.2); LYMPH # 0.6 K/mm3 (1.2-3.4); LYMPH % 4.7 % (20.0-51.0); MEAN CELL VOLUME 87 fl (80.0-100.0); MEAN CORPUSCULAR HGB CONC 30 g/dl (33.0-37.0); MEAN PLATELET VOLUME 10.7 fl (7.4-10.4); MONO # 1.3 K/mm3 (0.1-0.6); MONO % 10.9 % (1.7-9.3); PLATELET COUNT 172 K/mm3 (130-400); RED BLOOD COUNT 3.45 M/mm3 (4.10-5.30); REDCELL DISTRIBUTION WIDTH-CV 24.7 % (11.5-14.5)
[2021-10-12 06:23] LABS: HEMOGLOBIN 8.9 g/dl (12.5-16.0); MEAN CORPUSCULAR HEMOGLOBIN 26 pg (27-31)
[2021-10-12 06:33] LABS: CALCIUM 8.6 mg/dL (8.4-10.2); CREATININE, serum 0.53 mg/dL (0.57-1.11); POTASSIUM 3.9 mmol/L (3.5-4.5)
[2021-10-12 07:27] VITALS: BP 115/45; PULSE 94; TEMP 98.6
--- NOTE | 2021-10-12 07:40 | NUR ---
Patient laying in bed, nursing staff repositioning for comfort and for breakfast. A&Ox3, confused on location. Nursing staff reorienting the patient as needed. VSS. No IV access, doctor aware. Denies pain and discomfort. Be intact. Call light within reach. Bed alarm on
--- NOTE | 2021-10-12 09:25 | NUR ---
Clinical updates faxed to Darwin at [facility]
[2021-10-12 11:15] VITALS: BP 107/51; PULSE 94; TEMP 98
[2021-10-12 15:17] VITALS: BP 109/46; PULSE 83; TEMP 99.4
--- NOTE | 2021-10-12 17:19 | NUR ---
Patient sat up in the recliner for the first half of shift and back in bed for the remainder. Slept most of the shift, easily awakened with verbal command. A&Ox3. VSS. Be intact. LF leg elevated on pillow. Denies pain and discomfort. Call light within reach
[2021-10-12 19:54] VITALS: BP 103/49; PULSE 88; TEMP 98.7
[2021-10-12 23:39] VITALS: BP 112/50; PULSE 86; TEMP 98.1
[2021-10-13 03:21] VITALS: BP 136/51; PULSE 86; TEMP 98.9
--- NOTE | 2021-10-13 06:27 | NUR ---
pt sleeping most of the noc, awakens to mild stim, alert and oriented x2, upset at times that she is still in hospital, wants to go home. yousif patent/secure, dressing to left inner thigh replaced this am.
[2021-10-13 06:43] LABS: BASO % 0.5 % (0.0-2.0); EOS # 0.3 K/mm3 (0.0-0.7); EOS % 3.8 % (0.0-4.0); GRAN # 6.6 K/mm3 (1.4-6.5); GRAN % 78.1 % (42.2-75.2); LYMPH # 0.5 K/mm3 (1.2-3.4); LYMPH % 6.3 % (20.0-51.0); MEAN CELL VOLUME 87 fl (80.0-100.0); MEAN CORPUSCULAR HGB CONC 29 g/dl (33.0-37.0); MEAN PLATELET VOLUME 10.2 fl (7.4-10.4); MONO # 0.9 K/mm3 (0.1-0.6); MONO % 10.9 % (1.7-9.3); PLATELET COUNT 163 K/mm3 (130-400); RED BLOOD COUNT 3.32 M/mm3 (4.10-5.30); REDCELL DISTRIBUTION WIDTH-CV 24.7 % (11.5-14.5)
[2021-10-13 06:52] LABS: CALCIUM 8.2 mg/dL (8.4-10.2); CREATININE, serum 0.52 mg/dL (0.57-1.11)
[2021-10-13 07:09] LABS: HEMATOCRIT 28.9 % (37.0-47.0); HEMOGLOBIN 8.5 g/dl (12.5-16.0); MEAN CORPUSCULAR HEMOGLOBIN 26 pg (27-31)
[2021-10-13 07:39] VITALS: BP 133/64; PULSE 92; TEMP 98
--- NOTE | 2021-10-13 08:00 | NUR ---
Patient laying in bed sleeping, easily awakened with verbal commmand. A&Ox2, confused on location. VSS. IV CDI. LF leg elevated on a pillow. Denies pain and discomfort. Be intact. Patient repositioned for comfort and for breakfast. Call light within reach. Bed alarm on
[2021-10-13 12:00] VITALS: BP 102/54; PULSE 85; TEMP 98.3
[2021-10-13 15:47] VITALS: BP 114/44; PULSE 89; TEMP 99.1
--- NOTE | 2021-10-13 16:00 | NUR ---
Be removed, balloon intact. 10 ml removed from the balloon. Pericare provided before and after removal. Patient tolerated well. Nurse instructed the patient to call for assistance with going to the bathroom. Call light within reach. Bed alarm on
--- NOTE | 2021-10-13 17:22 | NUR ---
Patient stayed in the recliner for most of the morning and afternoon. Worked with PT and tolerated well. A&Ox3 with intermittent confusion. Be removed, will monitor output. Denies pain and discomfort. Left leg elevated on pillow. Call light within reach. Bed alarm on
[2021-10-13 20:08] VITALS: BP 133/59; PULSE 83; TEMP 98.3
--- NOTE | 2021-10-13 22:15 | NUR ---
PT LAYING IN BED RESTING QUIETLY. PT DENIES ANY PAIN AT THIS TIME.
[2021-10-13 23:50] VITALS: BP 113/57; PULSE 88; TEMP 98.4
[2021-10-14 03:40] VITALS: BP 110/53; PULSE 81; TEMP 98.6
[2021-10-14 07:03] LABS: BASO # 0.1 K/mm3 (0.0-0.2); BASO % 0.9 % (0.0-2.0); EOS # 0.3 K/mm3 (0.0-0.7); EOS % 3.8 % (0.0-4.0); GRAN % 73.1 % (42.2-75.2); LYMPH # 0.6 K/mm3 (1.2-3.4); LYMPH % 8.2 % (20.0-51.0); MEAN CELL VOLUME 87 fl (80.0-100.0); MEAN CORPUSCULAR HGB CONC 29 g/dl (33.0-37.0); MEAN PLATELET VOLUME 11.3 fl (7.4-10.4); MONO # 0.9 K/mm3 (0.1-0.6); MONO % 13.6 % (1.7-9.3); PLATELET COUNT 187 K/mm3 (130-400); RED BLOOD COUNT 3.33 M/mm3 (4.10-5.30); REDCELL DISTRIBUTION WIDTH-CV 24.4 % (11.5-14.5)
[2021-10-14 07:05] LABS: HEMOGLOBIN 8.5 g/dl (12.5-16.0); MEAN CORPUSCULAR HEMOGLOBIN 26 pg (27-31)
[2021-10-14 07:20] LABS: CALCIUM 8.3 mg/dL (8.4-10.2); CREATININE, serum 0.54 mg/dL (0.57-1.11)
[2021-10-14 07:34] VITALS: BP 131/52; PULSE 92; TEMP 98.2
--- NOTE | 2021-10-14 08:00 | NUR ---
PT A&O UP IN CHAIR EATING BREAKFAST ACCOMPANIED BY SISTER. AM MEDS GIVEN AND ASSESSMENT COMPLETED. PT DENIES PAIN. CALL LIGHT WITHIN REACH. NO OTHER NEEDS AT THIS TIME. PT WAITING FOR DISCHARGE TO [facility].
[2021-10-14] MEDS ORDERED: TOPROL XL 25MG25 MG PO (09:41)
[2021-10-14] MEDS ORDERED: PROTONIX 40MG T40 MG PO (09:42)
[2021-10-14 11:37] VITALS: BP 91/40; PULSE 91; TEMP 99.7
--- NOTE | 2021-10-14 13:46 | NUR ---
Harness Installer followed up with each facility about acceptance. Hali from [facility] declined referral. Both [facility] and [facility] can accept, however Darwin from [facility] wanted patient to be aware they have positives for covid in their building. ISMAEL attended clinical rounds with the team and patient's sister, Damaris is at bedside. Patient is ready for discharge. ISMAEL met with patient and Damaris to provide update on facilities. Patient decided on [facility] as she did not want to go to [facility] with them having active covid. ISMAEL contacted JUANITO Hsieh at [facility] and faxed discharge orders with negative covid results. Transport time set for 1430. ISMAEL presented IM form to patient who verbalized understanding and provided signature. ISMAEL placed form in chart and provided copy to patient. Discharge Plan: [facility]
--- NOTE | 2021-10-14 14:55 | NUR ---
PT DISCHARGED TO [facility] WITHOUT INT AND OCHOA CATHETER IN PLACE. [facility] EMPLOYEE RECIEVED DISCHARGE PACKET.
--- NOTE | 2021-10-14 15:00 | NUR ---
CALLED REPORT TO [facility] NURSE. ANSWERED QUESTIONS. PATIENT DISCHARGED.
== END 2021-10-14 14:55 | DRG 811 ==
LOC: COL.ER 17:47 → SURG 20:54 → ICU 20:54 → SURG 10-07 15:46
PROVIDERS: Emergency Medicine; Internal Medicine Gastroenterology; Nurse Practitioner Family; Physician Assistant; Student in an Organized Health Care Education/Training Program; ADMIT Internal Medicine
PROC: 30233N1 Transfusion of Nonautologous Red Blood Cells into Peripheral Vein, Percutaneous Approach (ICD-10-PCS; 2021-10-05)
PROC: 06H03DZ Insertion of Intraluminal Device into Inferior Vena Cava, Percutaneous Approach (ICD-10-PCS; 2021-10-08)
PROC: 0DB68ZX Excision of Stomach, Via Natural or Artificial Opening Endoscopic, Diagnostic (ICD-10-PCS; principal; 2021-10-10 15:00)
PROC: 0DJD8ZZ Inspection of Lower Intestinal Tract, Via Natural or Artificial Opening Endoscopic (ICD-10-PCS; 2021-10-10 15:00)
DX: D50.9 Iron deficiency anemia, unspecified (principal); G93.41 Metabolic encephalopathy; I21.A1 Myocardial infarction type 2; J96.01 Acute respiratory failure with hypoxia; R57.8 Other shock; K72.00 Acute and subacute hepatic failure without coma; E87.0 Hyperosmolality and hypernatremia; E87.2 Acidosis; N17.9 Acute kidney failure, unspecified; R65.10 Systemic inflammatory response syndrome (SIRS) of non-infectious origin without acute organ dysfunction; I31.3 Pericardial effusion (noninflammatory); I82.492 Acute embolism and thrombosis of other specified deep vein of left lower extremity; K92.2 Gastrointestinal hemorrhage, unspecified; I10 Essential (primary) hypertension; E86.0 Dehydration; Z20.822 Contact with and (suspected) exposure to COVID-19; I95.9 Hypotension, unspecified; R73.9 Hyperglycemia, unspecified; K76.89 Other specified diseases of liver; D75.839 Thrombocytosis, unspecified; E87.8 Other disorders of electrolyte and fluid balance, not elsewhere classified; K44.9 Diaphragmatic hernia without obstruction or gangrene; K31.89 Other diseases of stomach and duodenum; I48.0 Paroxysmal atrial fibrillation; I08.3 Combined rheumatic disorders of mitral, aortic and tricuspid valves; Z72.89 Other problems related to lifestyle; Z87.19 Personal history of other diseases of the digestive system; Z88.6 Allergy status to analgesic agent; Z90.89 Acquired absence of other organs; Z90.49 Acquired absence of other specified parts of digestive tract
CPT/HCPCS: 99233-AI; A4314; C1880; C1894; C9113; J1644; J2405; J2704; J2765; J2920; J2930; J7030; J7120; P9016; Q9967

== ENCOUNTER 2021-12-26 14:49 | Outpatient (CLI) | payer MEDICARE, BC ==
[~2021-12-26] VITALS: Ht 162.6 cm; Wt 63.2 kg
[~2021-12-26 14:49] MED LIST changes: +PROTONIX 40MG T40 MG PO; +TOPROL XL 25MG25 MG PO
[2021-12-26 15:39] VITALS: BP 149/84; PULSE 60; TEMP 99.2
[2021-12-26] MEDS ORDERED: LEXAPRO 10MG10 MG PO (16:48)
== END 2021-12-26 16:53 ==
LOC: EUO 14:49
DX: M81.0 Age-related osteoporosis without current pathological fracture (principal)
CPT/HCPCS: J0897

== ENCOUNTER 2022-04-23 15:21 | Inpatient (IN) | payer MEDICARE, BC ==
[~2022-04-23] VITALS: Ht 152.4 cm; Wt 59.6 kg
[~2022-04-23 15:21] MED LIST changes: +LEXAPRO 10MG10 MG PO
[2022-04-23 15:39] LABS: COLLECTION METHOD CLEAN CATCH
[2022-04-23 15:46] LABS: MEAN CELL VOLUME 94 fl (80.0-100.0); MEAN CORPUSCULAR HEMOGLOBIN 31 pg (27-31); MEAN CORPUSCULAR HGB CONC 33 g/dl (33.0-37.0); MEAN PLATELET VOLUME 10.5 fl (7.4-10.4); PLATELET COUNT 240 K/mm3 (130-400); RED BLOOD COUNT 4.46 M/mm3 (4.10-5.30)
[2022-04-23 15:47] LABS: MUCOUS Present (NOT PRESENT); SQUAMOUS EPITHELIAL 0-2 /hpf (0-10); URINE BACTERIA None Seen /hpf (NONE SEEN)
[2022-04-23 15:48] LABS: PH 5.5 (5.0-8.5); URINE APPEARANCE Cloudy (CLEAR/HAZY); URINE BLOOD 3+ (NEGATIVE); URINE COLOR Yellow (YELLOW); URINE GLUCOSE TRACE (NEGATIVE); URINE KETONE TRACE (NEGATIVE); URINE NITRATE Positive (NEGATIVE); URINE PROTEIN(semi-quant) 3+ (NEGATIVE)
[2022-04-23 16:07] LABS: ALBUMIN 3.5 gm/dL (3.4-4.8); BILIRUBIN,TOTAL 1.9 mg/dL (0.2-1.2); CALCIUM 9.3 mg/dL (8.4-10.2); CREATININE, serum 0.7 mg/dL (0.57-1.11); POTASSIUM 3.9 mmol/L (3.5-4.5); TOTAL PROTEIN 7.3 gm/dL (6.2-8.1)
[2022-04-23 16:09] LABS: LYMPHOCYTE 2 % (20.0-51.0); NEUTROPHILS 92 % (42.0-75.2); PLATELET ESTIMATE NORMAL (NORMAL)
[2022-04-23 16:10] LABS: C-REACTIVE PROTEIN 35.15 mg/dL (0.00-0.50)
[2022-04-23] MEDS ORDERED: GLUCOPHAGE500 MG/TAB PO (18:32)
[2022-04-23 21:02] VITALS: BP 111/47; PULSE 87; TEMP 102.1
[2022-04-23 22:26] VITALS: PULSE 87; TEMP 102.1
[2022-04-23 23:05] VITALS: BP 110/48; PULSE 75; TEMP 98.6
[2022-04-24] VITALS (10 sets, daily range): BP systolic 110–134; BP diastolic 35–57; PULSE 75–90; TEMP 97.7–99.9
--- NOTE | 2022-04-24 05:53 | NUR ---
PATIENT WAS ADMITTED TO THE FLOOR FROM ED. PATIENT IS A&OX3 AND DENIES PAIN AT THIS TIME. PATIENT DENIES QUESTIONS OR CONCERNS AT THIS TIME
[2022-04-24 06:44] LABS: BASO % 0.2 % (0.0-2.0); EOS % 0.1 % (0.0-4.0); GRAN # 9.4 K/mm3 (1.4-6.5); GRAN % 82.8 % (42.2-75.2); LYMPH # 0.4 K/mm3 (1.2-3.4); LYMPH % 3.4 % (20.0-51.0); MEAN CELL VOLUME 97 fl (80.0-100.0); MEAN CORPUSCULAR HGB CONC 32 g/dl (33.0-37.0); MEAN PLATELET VOLUME 11.1 fl (7.4-10.4); MONO # 1.5 K/mm3 (0.1-0.6); MONO % 12.9 % (1.7-9.3); PLATELET COUNT 201 K/mm3 (130-400); REDCELL DISTRIBUTION WIDTH-CV 13.8 % (11.5-14.5)
[2022-04-24 06:52] LABS: HEMATOCRIT 36.8 % (37.0-47.0); HEMOGLOBIN 11.9 g/dl (12.5-16.0); MEAN CORPUSCULAR HEMOGLOBIN 31 pg (27-31)
[2022-04-24 06:57] LABS: CALCIUM 8.3 mg/dL (8.4-10.2); CREATININE, serum 0.56 mg/dL (0.57-1.11); POTASSIUM 3.3 mmol/L (3.5-4.5)
--- NOTE | 2022-04-24 13:26 | NUR ---
Initial visit; Patient somewhat confused when Machine Shop Instructor came in the door after her meal was served. Machine Shop Instructor introduced herself and asked how patient was. Though she didn't answer, Tessa seemed to not make eye contact at first. Machine Shop Instructor offered to help her sit up and adjust the food tray stand though she declined help. Machine Shop Instructor let her know she could offer prayer or keep her in Machine Shop Instructor's prayers if she would like. She said Machine Shop Instructor could keep her in her prayers.
--- NOTE | 2022-04-24 14:17 | NUR ---
ISMAEL met with the patient and her sister, Damaris Seals (ph#[phone]), to discuss discharge plan. The patient lives alone in [place]. Damaris also lives in [place]. The patient reports independence with ADLs and has a cane and walker. She denies having any in home services at this time, but has in the past. The patient's PCP is Dr. Greg Haider and she receives her medications from [facility]. The patient's DPOA-HC is in EMR and it designates her sister, Damaris. The alternate is her niece, Carola Morgan. The patient plans to return home upon discharge. PT/OT have been ordered. *Discharge plan: home*
[2022-04-25] VITALS (7 sets, daily range): BP systolic 113–131; BP diastolic 37–53; PULSE 77–90; TEMP 97.4–100.1
--- NOTE | 2022-04-25 00:27 | NUR ---
NURSING SHIFT ASSESSMENT COMPLETED. THE PATIENT IS ALERT AND ORIENTED TIMES 4. THE PATIENT DENIED PAIN. THE PLAN OF CARE WAS DISCUSSED AND QUESTIONS ANSWERED. EVENING MEDICATIONS DISCUSSED WELL. NO FURTHER NEEDS EXPRESSED. CALL LIGHT AND PERSONAL BELONGINGS WITHIN REACH. BED IN LOW POSITION. BED ALARM ON. WILL MONITOR.
[2022-04-25 06:13] LABS: BASO % 0.2 % (0.0-2.0); EOS % 0.1 % (0.0-4.0); GRAN # 7.7 K/mm3 (1.4-6.5); HEMOGLOBIN 11.8 g/dl (12.5-16.0); LYMPH # 0.4 K/mm3 (1.2-3.4); LYMPH % 4.1 % (20.0-51.0); MEAN CELL VOLUME 93 fl (80.0-100.0); MEAN CORPUSCULAR HEMOGLOBIN 31 pg (27-31); MEAN CORPUSCULAR HGB CONC 33 g/dl (33.0-37.0); MEAN PLATELET VOLUME 10.7 fl (7.4-10.4); MONO # 1.3 K/mm3 (0.1-0.6); MONO % 13.7 % (1.7-9.3); PLATELET COUNT 256 K/mm3 (130-400); RED BLOOD COUNT 3.79 M/mm3 (4.10-5.30); REDCELL DISTRIBUTION WIDTH-CV 13.8 % (11.5-14.5)
[2022-04-25 06:14] LABS: HEMATOCRIT 35.4 % (37.0-47.0)
[2022-04-25 06:34] LABS: CALCIUM 8.5 mg/dL (8.4-10.2); CREATININE, serum 0.54 mg/dL (0.57-1.11); POTASSIUM 3.2 mmol/L (3.5-4.5)
--- NOTE | 2022-04-25 08:00 | NUR ---
Patient awake in bed, drowsy, but A&Ox3. VSS. IV CDI. Denies pain and discomfort. Incontinent of urine. Changed and positioned for comfort. Call light within reach. Bed alarm on
--- NOTE | 2022-04-25 10:21 | NUR ---
OT recommends home with family assist and home health. ISMAEL met with the patient to discuss their recommendation and provided her with Medicare.gov's list of home health agencies that serve [place]. The patient states that she had home health in the past, but cannot recall what agency she had. She would like to pursue with that agency. ISMAEL contacted Ekaterina at [facility] to inquire what agency it was. [facility]aterina reports that [facility]. ISMAEL contacted and faxed a referral to Buffy at [facility]. Awaiting screen. *Discharge plan: home with home health*
[2022-04-25] MEDS ORDERED: ASPIRIN E.C. 8181 MG PO (16:07)
[2022-04-26] VITALS (10 sets, daily range): BP systolic 109–140; BP diastolic 37–83; PULSE 75–90; TEMP 98.2–99.1
[2022-04-26 06:25] LABS: BASO % 0.2 % (0.0-2.0); EOS # 0.1 K/mm3 (0.0-0.7); EOS % 1.1 % (0.0-4.0); GRAN # 6.5 K/mm3 (1.4-6.5); GRAN % 80.2 % (42.2-75.2); HEMOGLOBIN 11.7 g/dl (12.5-16.0); LYMPH # 0.4 K/mm3 (1.2-3.4); LYMPH % 4.4 % (20.0-51.0); MEAN CELL VOLUME 94 fl (80.0-100.0); MEAN CORPUSCULAR HEMOGLOBIN 31 pg (27-31); MEAN CORPUSCULAR HGB CONC 33 g/dl (33.0-37.0); MEAN PLATELET VOLUME 10.4 fl (7.4-10.4); MONO # 1.1 K/mm3 (0.1-0.6); MONO % 13.6 % (1.7-9.3); PLATELET COUNT 269 K/mm3 (130-400); RED BLOOD COUNT 3.73 M/mm3 (4.10-5.30); REDCELL DISTRIBUTION WIDTH-CV 13.9 % (11.5-14.5)
[2022-04-26 06:40] LABS: CALCIUM 8.2 mg/dL (8.4-10.2); CREATININE, serum 0.51 mg/dL (0.57-1.11)
--- NOTE | 2022-04-26 08:00 | NUR ---
Patient setting off the bed alarm already out of bed, A&O, slow to respond. VSS. IV intact. Denies pain and discomfort. Call light within. Bed alarm on
--- NOTE | 2022-04-26 22:50 | NUR ---
Shift assessment done around 1944, pt is in bed. A&O x4. Pt reports feeling sleepy. All medications given per emar. LFA INT is CDI. No needs or concerns reported at this time. Fall risk precautions in place. Belongings and call light are within reach.
[2022-04-27 01:04] VITALS: PULSE 85; TEMP 98.2
[2022-04-27 03:32] VITALS: BP 135/47; PULSE 87; TEMP 99.2
[2022-04-27 05:00] VITALS: PULSE 87; TEMP 99.2
[2022-04-27 07:21] VITALS: BP 132/49; PULSE 78; TEMP 97.6
--- NOTE | 2022-04-27 07:39 | NUR ---
Patient sleeping in bed, easily awakened with verbal commmand, A&O, but drowsy and slow to respond. VSS. IV CDI. Denies pain and discomfort. Call light within reach. Bed alarm on
[2022-04-27] MEDS ORDERED: AMOXICILLIN 8751 TAB PO (09:37)
[2022-04-27] MEDS ORDERED: LIPITOR 40MG TA40 MG PO (09:41)
[2022-04-27 11:07] VITALS: BP 111/43; PULSE 103; TEMP 97.9
--- NOTE | 2022-04-27 12:30 | NUR ---
Discharge paperwork reviewed with the patient and family at the bedside. Patient verbalized an understanding to follow doctors orders. IV removed, gauze and coban covering. Nurse assisted with getting the patient dressed and into the wheelchair. Patient transfered to awaiting vehicle with personal belongings
--- NOTE | 2022-05-09 11:02 | NUR ---
general house worker confirmed with [facility] that they are currently seeing the patient.
== END 2022-04-27 12:30 | disposition home health service (06) | DRG 871 ==
LOC: COL.ER 15:21 → MEDICAL 17:35
PROVIDERS: Emergency Medicine; Physician Assistant; ADMIT Student in an Organized Health Care Education/Training Program
DX: A41.9 Sepsis, unspecified organism (principal); G93.41 Metabolic encephalopathy; N39.0 Urinary tract infection, site not specified; K21.9 Gastro-esophageal reflux disease without esophagitis; I10 Essential (primary) hypertension; K44.9 Diaphragmatic hernia without obstruction or gangrene; D64.9 Anemia, unspecified; Z20.822 Contact with and (suspected) exposure to COVID-19; E87.6 Hypokalemia; I48.0 Paroxysmal atrial fibrillation; Z86.718 Personal history of other venous thrombosis and embolism; Z90.49 Acquired absence of other specified parts of digestive tract; Z90.89 Acquired absence of other organs; Z88.6 Allergy status to analgesic agent; Z23 Encounter for immunization
CPT/HCPCS: A9575; J0696; J7030; J7120; Q9967

== ENCOUNTER → 2022-05-02 | Outpatient (CLI) | payer MEDICARE, BC ==
[~2022-05-02] MED LIST changes: +AMOXICILLIN 8751 TAB PO; +ASPIRIN E.C. 8181 MG PO; +GLUCOPHAGE500 MG/TAB PO; +LIPITOR 40MG TA40 MG PO
== END ==
LOC: MC.RAD 02-20 10:45
DX: Z12.31 Encounter for screening mammogram for malignant neoplasm of breast (principal)

== ENCOUNTER 2022-06-26 15:04 | Outpatient (CLI) | payer MEDICARE, BC ==
[~2022-06-26] VITALS: Ht 152.4 cm; Wt 62.1 kg
[2022-06-26 15:14] VITALS: BP 110/54; PULSE 64; TEMP 97.3
--- NOTE | 2022-06-26 15:30 | NUR ---
PT DISCHARGED AT APPROX 1530. SHE TOLERATED HER PROLIA INJECTION WELL AND HER VS REMAINED WITHIN NORMAL LIMITS DURING BEFORE AND AFTER INJECTION. SHE AMBULATED TO THE MAIN LOBBY TO MEET HER RIDE UPON DISCHARGE. SHE WAS FREE FROM COMPLAINTS OR CONCERNS AT TIME OF DISCHARGE.
== END 2022-06-26 15:30 | disposition home or self-care (01) ==
LOC: EUO 15:04
DX: M81.0 Age-related osteoporosis without current pathological fracture (principal)
CPT/HCPCS: J0897

== ENCOUNTER 2023-08-28 14:00 | Inpatient (IN) | payer MEDICARE, BC | END 2023-08-30 13:00 | disposition home or self-care (01) | DRG 811 | LOC: COL.ER 14:00 → MEDICAL 17:00 | PROVIDERS: ADMIT Internal Medicine | PROC: 30233N1 Transfusion of Nonautologous Red Blood Cells into Peripheral Vein, Percutaneous Approach (ICD-10-PCS; principal; 2023-08-28) | DX: D50.9 Iron deficiency anemia, unspecified (principal); J96.01 Acute respiratory failure with hypoxia; I48.91 Unspecified atrial fibrillation; I95.9 Hypotension, unspecified; Z90.49 Acquired absence of other specified parts of digestive tract | CPT/HCPCS: P9016 ==

== ENCOUNTER 2023-11-02 11:28 | Day surgery (SDC) | payer MEDICARE, BC ==
[~2023-11-02] VITALS: Ht 152.4 cm; Wt 64.5 kg
[~2023-11-02 11:28] MED LIST changes: +LR 1,000 ML IV SCH; +Ondansetron 4 MG/2 ML VIAL IV PRN
[2023-11-02 12:32] VITALS: BP 149/70; PULSE 75; TEMP 96.6
--- NOTE | 2023-11-02 12:35 | NUR ---
Pt arrived with sister and brother in law, SBA x1 provided throughout care as needed; VSS and bowels WNL for the procedure, RR even and unlabored; +1-+2 edema to BLEs, pt reports this as her baseline, no open wounds throughout; reviewed and signed consents, no questions/concerns; medication list from [facility] though no last admin times, pt verbalized she took no medications this morning; reviewed meds/allergies/pharm/history and updated. 20G IV to ALEJANDRO, flushes well, and LR hanging. Brother in law spoke with procedure nurse and anesthesiologist about history of apnea post procedure.
[2023-11-02] MEDS ORDERED: Lidocaine PF 2% (20 MG/ML) 5 ML VIAL ONE ×2 (12:38→13:00)
[2023-11-02] MEDS ORDERED: Labetalol 100 MG/20 ML Multi-Dose VIAL ONE (12:47)
[2023-11-02 13:48] VITALS: BP 132/64; PULSE 80
[2023-11-02 14:00] VITALS: BP 138/60; PULSE 88
[2023-11-02 14:15] VITALS: BP 136/57; PULSE 81
--- NOTE | 2023-11-02 15:12 | NUR ---
1348 PATIENT RETURNS TO [facility]. PT AWAKE AND ALERT. RESPIRATIONS UNLABORED. AMBULATED TO RECLINER CHAIR WITH 2:1 SBA. PT DENIES NAUSEA OR ABDOMINAL PAIN. HOOKED UP TO MONITOR AND VS OBTAINED. CALL LIGHT AT SIDE AND SISTER AND BROTHER IN LAW PRESENT. 1355 PATIENT TOLERATING PEPSI AND MUFFIN WITHOUT NAUSEA OR DIFFICULTY SWALLOWING (EGD ONLY). 1400 IN ROOM SPEAKING WITH PATIENT. 1415 D/C INSTRUCTIONS REVIEWED WITH PATIENT. PT VERBALIZED UNDERSTANDING AND A COPY OF INSTRUCTIONS PROVIDED IN D/C FOLDER. 1430 PATIENT DRESSES WITH ASSISTANCE OF RN. 1445 PATIENT DISCHARGED FROM UNIT VIA W/C TO A PERSONAL VEHICLE. PT LEFT HOSPITAL IN STABLE CONDITION.
== END 2023-11-02 14:45 | disposition home or self-care (01) ==
LOC: SDCO 11:28
DX: D64.9 Anemia, unspecified (principal); K29.30 Chronic superficial gastritis without bleeding; K31.A19 Gastric intestinal metaplasia without dysplasia, unspecified site; K44.9 Diaphragmatic hernia without obstruction or gangrene; D12.5 Benign neoplasm of sigmoid colon; K64.0 First degree hemorrhoids
CPT/HCPCS: J1920; J2704; J7120

== ENCOUNTER 2024-01-19 14:07 | Outpatient (CLI) | payer MEDICARE, BC ==
[~2024-01-19] VITALS: Ht 152.4 cm; Wt 71.2 kg
[~2024-01-19 14:07] MED LIST changes: -LR 1,000 ML IV SCH; -Ondansetron 4 MG/2 ML VIAL IV PRN
[2024-01-19 14:27] VITALS: BP 133/78; PULSE 67; TEMP 99.1
[2024-01-19] MEDS ORDERED: Denosumab 60 MG/ML SYRINGE SQ ONE (14:30)
[2024-01-19] MEDS ORDERED: FERROUS SU325 MG/TAB PO (14:44)
[2024-01-19] MEDS ORDERED: ANTIVERT 12.512.5 MG PO (14:45)
== END 2024-01-19 15:13 ==
LOC: EUO 14:07
DX: M81.0 Age-related osteoporosis without current pathological fracture (principal)
CPT/HCPCS: J0897